=== PATIENT | male | born 1995 | race African-American/Black ===

== ENCOUNTER 2020-04-25 09:01 | Outpatient (REF) | payer SELFPAY ==
[2020-04-25 09:20] LABS: MANUAL DIFF FLAG NO
[2020-04-25 09:26] LABS: Basophils Percent Auto 0.3 % (0-2); Eosinophils Absolute Auto 0.4 X10*3/uL (0.0-0.4); Eosinophils Percent Auto 5.4 % (0-4); Hemoglobin 13.6 g/dl (14.0-18.0); Imm Gran Abs Auto 0.06 X10*3/uL (0.00-0.03); Imm Gran Pct Auto 0.9 % (0.0-0.4); Lymphocytes Absolute Auto 2.5 X10*3/uL (1.2-4.9); Lymphocytes Percent Auto 38.4 % (20-40); Mean Corpuscular HGB Conc 31.6 g/dl (31.0-36.0); Mean Corpuscular Hemoglobin 28.8 pg (27.0-33.0); Mean Corpuscular Volume 90.9 fL (80-98); Mean Platelet Volume 10.7 fL (9.4-12.4); Monocytes Absolute Auto 0.6 X10*3/uL (0.1-1.2); Monocytes Percent Auto 9.9 % (2-11); Neutrophils Absolute Auto 2.9 X10*3/uL (2.0-8.3); Neutrophils Percent Auto 45.1 % (45-73); Platelet Count 192 X10*3/uL (160-400); Red Blood Count 4.73 X10*6/uL (4.60-5.80); Red Cell Distribution Width 13.4 % (11.0-16.0); White Blood Count 6.5 X10*3/uL (4.8-10.8)
[2020-04-25 09:43] LABS: Anion Gap 12 (12-20); Blood Urea Nitrogen 13 mg/dL (9-16); Carbon Dioxide 29 mmol/L (22-29); Chloride 105 mmol/L (96-108); Cholesterol 167 mg/dL; Estimated Glomerular Filt Rate > 60; Glucose Fasting 86 mg/dL (60-99); HDL Cholesterol 77 mg/dL; LDL Cholesterol Calculated 76 mg/dl; Potassium 4.5 mmol/l (3.3-5.1); Sodium 141 mmol/L (135-145); Triglycerides 72 mg/dL
[2020-04-25 10:04] LABS: TSH reflex Free T4 2.68 mIU/mL (0.32-4.0)
[2020-04-25 12:10] LABS: Reflex LDLD? No
== END 2020-04-25 09:02 | disposition home or self-care (01) ==
LOC: HO.LAB 09:01
PROVIDERS: PCP Nurse Practitioner Family; Visit Provider Nurse Practitioner Family
DX: Z00.00 Encounter for general adult medical examination without abnormal findings (principal)
CPT/HCPCS: 36415; 80048; 80061; 84443; 85025

== ENCOUNTER 2020-05-09 09:57 | Outpatient (REF) | payer SELFPAY | END 2020-05-09 09:58 | disposition home or self-care (01) | LOC: HO.LAB 09:57 | PROVIDERS: PCP Nurse Practitioner Family; Visit Provider Internal Medicine | DX: Z20.828 Contact with and (suspected) exposure to other viral communicable diseases (principal) | CPT/HCPCS: C9803; U0003 ==

== ENCOUNTER 2020-05-09 10:46 | Outpatient (REF) | payer SELFPAY ==
[2020-05-22 01:42] LABS: HIV Genotype NOT DETECTED
== END 2020-05-09 10:47 | disposition home or self-care (01) ==
LOC: HO.LAB 10:46
PROVIDERS: PCP Nurse Practitioner Family; Visit Provider Nurse Practitioner Family
DX: Z20.6 Contact with and (suspected) exposure to human immunodeficiency virus [HIV] (principal)
CPT/HCPCS: 87900; 87901

== ENCOUNTER 2020-09-24 08:27 | Outpatient (REF) | payer OTHER, SELFPAY ==
[2020-09-24 09:41] LABS: COVID-19 Test Negative (Negative); IDNOW Serial# 55D5AD1C
== END 2020-09-24 08:28 | disposition home or self-care (01) ==
LOC: HO.LAB 08:27
PROVIDERS: Visit Provider Internal Medicine
DX: Z20.822 Contact with and (suspected) exposure to COVID-19 (principal)
CPT/HCPCS: 36415; 87635; C9803

== ENCOUNTER 2020-10-12 09:06 | Outpatient (REF) | payer OTHER, SELFPAY ==
[2020-10-12 09:27] LABS: COVID-19 Test Negative (Negative)
== END 2020-10-12 09:07 | disposition home or self-care (01) ==
LOC: HO.LAB 09:06
PROVIDERS: Visit Provider Internal Medicine
DX: Z20.822 Contact with and (suspected) exposure to COVID-19 (principal)
CPT/HCPCS: 36415; 87635; C9803

== ENCOUNTER 2021-01-08 07:51 | Outpatient (REF) | payer OTHER, SELFPAY | END 2021-01-08 07:52 | disposition home or self-care (01) | LOC: HO.LAB 07:51 | PROVIDERS: Visit Provider Internal Medicine | DX: Z20.822 Contact with and (suspected) exposure to COVID-19 (principal) | CPT/HCPCS: C9803; U0003; U0005 ==

== ENCOUNTER 2021-05-17 09:15 | Outpatient (REF) | payer OTHER, SELFPAY ==
[2021-05-17 10:29] LABS: COVID-19 Test Positive (Negative)
== END 2021-05-17 09:16 | disposition home or self-care (01) ==
LOC: HO.LAB 09:15
PROVIDERS: Visit Provider Internal Medicine
DX: Z20.822 Contact with and (suspected) exposure to COVID-19 (principal)
CPT/HCPCS: 36415; 87635; C9803

== ENCOUNTER 2022-01-17 07:24 | Outpatient (REF) | payer OTHER, SELFPAY ==
[2022-01-17 08:12] LABS: COVID-19 Test Positive (Negative)
== END 2022-01-17 07:25 | disposition home or self-care (01) ==
LOC: HO.LAB 07:24
PROVIDERS: Visit Provider Internal Medicine
DX: Z20.822 Contact with and (suspected) exposure to COVID-19 (principal)
CPT/HCPCS: 87635; C9803